=== PATIENT | female | born 2000 | race African-American/Black ===

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

== ENCOUNTER 2021-12-06 12:42 | Emergency (ER) | payer MEDICAID ==
[~2021-12-06] VITALS: Ht 160 cm; Wt 60.0 kg
[2021-12-06] MEDS ORDERED: LIDOCAINE HCL/PF 1% 10 MG/ML 5ML VIAL INFIL ONE (16:45)
[2021-12-06] MEDS ORDERED: BACITRACIN ZINC OINT UDPKT TOP ONE (16:45)
[2021-12-06] MEDS ORDERED: ACETAMINOPHEN 325MG TABLET PO ONE (16:45)
[2021-12-06] MEDS ORDERED: TOPUD MT (17:30)
[2021-12-06 18:32] VITALS: BP 126/87
== END 2021-12-06 17:59 | disposition home or self-care (01) ==
LOC: ER 12:56
DX: S91.311A Laceration without foreign body, right foot, initial encounter (principal); W25.XXXA Contact with sharp glass, initial encounter; Y93.89 Activity, other specified; Y07.9 Unspecified perpetrator of maltreatment and neglect; Y08.89XA Assault by other specified means, initial encounter; Y92.89 Other specified places as the place of occurrence of the external cause
CPT/HCPCS: 12001; 73630; 81025; 99283; J3490